=== PATIENT | female | born 1950 | race Caucasian/White ===

== ENCOUNTER 2020-06-02 14:34 | Outpatient (CLI) | payer MEDICARE ==
[2013-08-02 02:56] VITALS: BMI 29.3
[~2020-06-02 14:34] MED LIST: BAYER CHEWABLE81 MG PO; CELEXA10 MG PO; ECOTRIN325 MG PO; HYDROCODON-ACE1 EAC7 PO; K-DUR20 MEQ PO; LASIX20 MG PO; LISINOPRIL10 MG PO; PLAVIX75 MG PO
== END 2020-06-02 23:59 | disposition home or self-care (01) ==
LOC: D.MAMMO 14:34
PROVIDERS: ATTEND Family Medicine
DX: Z12.31 Encounter for screening mammogram for malignant neoplasm of breast (principal)

== ENCOUNTER 2020-07-25 19:37 | Inpatient (IN) | payer MEDICARE ==
[~2020-07-25] VITALS: Ht 157.5 cm; Wt 74.1 kg
[2020-07-25 20:13] LABS: BASOPHILS 0.8 % (0-2); EOSINOPHILS 2.6 % (0-7); HEMATOCRIT 33.7 % (36.0-48.0); HEMOGLOBIN 10.9 g/dL (12-16); LYMPHOCYTES 10.4 % (15-50); MCH 26.6 pg (26.0-34.0); MCHC 32.3 g/dL (31.0-37.0); MCV 82.3 fL (80.0-100.0); MEAN PLATELET VOLUME 7.8 fL (7.4-10.4); MONOCYTES 9.1 % (2-11); NEUTROPHILS 77.1 % (40-80); RBC 4.09 10x6/uL (4.00-5.40); RDW 14.8 % (11.5-14.5); WBC 8.7 10x3/uL (4.8-10.8)
[2020-07-25 20:18] LABS: PLATELET COUNT 339 10x3/uL (130-400)
[2020-07-25 20:21] LABS: APTT 25.6 SECONDS (22.8-39.4); INR 1.06 (0.85-1.17); PROTIME 12.7 SECONDS (11.6-15.0)
[2020-07-25 20:31] LABS: CALC OSMOLALITY 292 mosm/kg (275-300); CALCIUM 7.7 mg/dL (8.5-10.1); CARBON DIOXIDE 32.9 mmol/L (21.0-32.0); CHLORIDE - SERUM 105 mmol/L (98-107); CREATININE - SERUM 0.9 mg/dL (0.6-1.3); GLUCOSE 109 mg/dL (74-106); POTASSIUM - SERUM 3.4 mmol/L (3.5-5.1); SODIUM 145 mmol/L (136-145); UREA NITROGEN 20 mg/dL (7-18); eGFR NON AFRICAN AMERICAN 65 mL/min (90-120)
[2020-07-25 20:50] LABS: ALBUMIN 3.5 g/dL (3.4-5.0); ALKALINE PHOSPHATASE 117 U/L (30-120); ALT (SGPT) 27 U/L (10-68); BILIRUBIN - TOTAL 0.31 mg/dL (0.2-1.3); CKMB 1.8 U/L (0.0-3.6); CREATINE KINASE 106 UL (21-215); PRO BNP 257 pg/mL (0-125); PROTEIN - SERUM 7.1 g/dL (6.4-8.2)
[2020-07-25 20:51] LABS: TROPONIN-I < 0.017 ng/mL (0.000-0.060)
[2020-07-25 23:27] VITALS: BP 169/61
[2020-07-26] MEDS ORDERED: SINGULAIR10 MG PO (00:56)
[2020-07-26] MEDS ORDERED: COZAAR50 MG PO (00:56)
[2020-07-26] MEDS ORDERED: NORVASC10 MG PO (00:57)
[2020-07-26] MEDS ORDERED: PROTONIX40 MG PO (00:58)
[2020-07-26] MEDS ORDERED: LIPITOR40 MG PO (01:41)
[2020-07-26 04:53] VITALS: BP 157/70; BMI 29.9
[2020-07-26 05:37] VITALS: BP 137/64
[2020-07-26 06:20] LABS: BASOPHILS 0.1 % (0-2); EOSINOPHILS 0.4 % (0-7); HEMATOCRIT 33.6 % (36.0-48.0); HEMOGLOBIN 11.1 g/dL (12-16); LYMPHOCYTES 5.1 % (15-50); MCH 26.9 pg (26.0-34.0); MCHC 32.9 g/dL (31.0-37.0); MCV 81.8 fL (80.0-100.0); MEAN PLATELET VOLUME 8.2 fL (7.4-10.4); MONOCYTES 1.8 % (2-11); NEUTROPHILS 92.6 % (40-80); PLATELET COUNT 320 10x3/uL (130-400); RBC 4.11 10x6/uL (4.00-5.40); RDW 14.6 % (11.5-14.5)
[2020-07-26 06:45] LABS: ALBUMIN 3.5 g/dL (3.4-5.0); ANION GAP 11.8 mmol/L (8-16); BILIRUBIN - TOTAL 0.3 mg/dL (0.2-1.3); CALCIUM 7.9 mg/dL (8.5-10.1); CARBON DIOXIDE 31.1 mmol/L (21.0-32.0); CREATININE - SERUM 0.9 mg/dL (0.6-1.3); POTASSIUM - SERUM 3.9 mmol/L (3.5-5.1); PROTEIN - SERUM 7.3 g/dL (6.4-8.2)
--- NOTE | 2020-07-26 07:00 | NUR ---
RECEIVED REPORT. ASSUMED CARE OF PATIENT. WHITE BOARD UPDATED, BEDSIDE SHIFT REPORT COMPLETE. NO DISTRESS. CALL LIGHT WITHIN REACH.
--- NOTE | 2020-07-26 08:00 | NUR ---
SCDs NOT WANTED AT THIS TIME. PATIENT UP FREQUENTLY TO THE RESTROOM AND IN A HURRY. EDUCATION PROVIDED WHY SCDs ARE USED IN THE PREVENTION OF BLOOD CLOTS. PATIENT VERBALIZED UNDERSTANDING OF EDUCATION PROVIDED. PATIENT CONTINUES TO NOT WEAR THEM AT THIS TIME. NO DISTRESS.
[2020-07-26 09:17] VITALS: BP 157/70
[2020-07-26 11:57] VITALS: BP 156/57
--- NOTE | 2020-07-26 13:29 | NUR ---
MEDICATED FOR PAIN AND ASSISTED PATIENT BACK TO BED. NO DISTRESS.
[2020-07-26 13:49] VITALS: BMI 29.8
[2020-07-26 14:35] VITALS: Ht 157.5 cm; Wt 74.1 kg
--- NOTE | 2020-07-26 14:57 | NUR ---
PATIENT DISLODGED IV RETURNING FROM RESTROOM. 20 GAUGE IV REMOVED FROM LEFT AC, CATHETER TIP INTACT, NO BLEEDING FROM SITE. 2X2 GAUZE APPLIED AND SECURED WITH TAPE. NO DISTRESS.
--- NOTE | 2020-07-26 16:36 | NUR ---
PATIENTS DAUGHTER CALLED FOR AN UPDATE. DAUGHTER THANKED THIS REVIVAL CLERK FOR UPDATING HER ON HER MOMS CONDITION.
--- NOTE | 2020-07-26 17:00 | NUR ---
20 GAUGE IV PLACED TO LEFT WRIST/FA AREA X 1 STICK. GOOD BLOOD RETURN, EASY FLUSH. TAPED, DATED AND SECURED. PATIENT TOLERATED IV PLACMENT WELL. IV FLUIDS NOW INFUSING ORDERED. NO DISTRESS.
[2020-07-26 19:25] VITALS: BP 172/72
--- NOTE | 2020-07-26 19:45 | NUR ---
RECEIVED BEDSIDE REPORT. PT LAYING IN BED A&O X4. PIV TO LEFT WRIST, PATENT AND INFUSING, NO REDNESS OR SWELLING. 02 SAT 97% ON 2L VIA NC. TELEMETRY IN PLACE, 93 SR. EDCUATED PT ON CL AND NEEDS, VERBALIZED UNDERSTANDING. BED LOW, CL IN REACH.
[2020-07-26 20:00] VITALS: BP 172/72
[2020-07-27 04:00] VITALS: BP 162/80
--- NOTE | 2020-07-27 06:50 | NUR ---
RECIEVED BEDSIDE REPORT. RESP EVEN AND UNLABORED ON 2L NASAL CANNULA. IV TO LEFT WRIST NS RUNNING AT 50.
[2020-07-27 07:44] VITALS: BP 170/71
--- NOTE | 2020-07-27 09:00 | NUR ---
PATIENT ASLEEP AND EASILY AROUSED. NO CURRENT PAIN OR DISTRESS. SHORTNESS OF BREATH NOTED WHEN ACTIVITY STARTED. O2 AT L NASAL CANNULA SAT 98. LUNG SOUNDS WITH BILATERAL LOWER DIMINISHED LOBES. HEART SOUNDS REGULAR RATE AND RYTHYM. PATIENT IS AMBULATORY AROUND ROOM AND TWO BATHROOM. IV TO LEFT WRIST PATENT AND RUNNING FLUID AT 50P/HR.
[2020-07-27 12:02] VITALS: BP 162/58
[2020-07-27 15:37] VITALS: BP 164/71
[2020-07-27 20:14] VITALS: BP 124/79
[2020-07-27 23:38] VITALS: BP 190/79
[2020-07-28 06:07] VITALS: BP 166/82
[2020-07-28 06:45] LABS: BASOPHILS 0.2 % (0-2); EOSINOPHILS 0 % (0-7); HEMATOCRIT 34.5 % (36.0-48.0); HEMOGLOBIN 11.3 g/dL (12-16); LYMPHOCYTES 10.2 % (15-50); MCH 26.6 pg (26.0-34.0); MCHC 32.7 g/dL (31.0-37.0); MCV 81.3 fL (80.0-100.0); MEAN PLATELET VOLUME 8.1 fL (7.4-10.4); MONOCYTES 4.8 % (2-11); NEUTROPHILS 84.8 % (40-80); PLATELET COUNT 362 10x3/uL (130-400); RBC 4.24 10x6/uL (4.00-5.40); RDW 14.9 % (11.5-14.5)
[2020-07-28 06:59] LABS: CALC OSMOLALITY 286 mosm/kg (275-300); CALCIUM 8.3 mg/dL (8.5-10.1); CARBON DIOXIDE 30.4 mmol/L (21.0-32.0); CHLORIDE - SERUM 101 mmol/L (98-107); CREATININE - SERUM 0.7 mg/dL (0.6-1.3); POTASSIUM - SERUM 3.2 mmol/L (3.5-5.1); SODIUM 141 mmol/L (136-145); UREA NITROGEN 25 mg/dL (7-18); eGFR NON AFRICAN AMERICAN 87 mL/min (90-120)
[2020-07-28 07:26] LABS: GLUCOSE 135 mg/dL (74-106)
--- NOTE | 2020-07-28 08:00 | NUR ---
PT RECEIVED ASLEEP IN BED, AROUSED TO VOICE. OXYGEN AT 2 LITERS. PAIN IN LEGS, BEEN UP TO BATHROOM.
[2020-07-28 08:05] VITALS: BP 161/75
[2020-07-28 12:27] VITALS: BP 167/74
--- NOTE | 2020-07-28 20:00 | NUR ---
REPORT RECEIVED. PT A&O, UP ON BEDSIDE. NO S/S OF DISTRESS OBSERVED. RR EVEN & UNLABORED ON 2L. SR 91 ON TELE. [place] ADMIN'ED FOR PAIN. IV TO L WRIST PATENT, SL, SWAB CAPS IN USE. BED LOCKED AND LOWERED, CL IN REACH. ASSESSMENT COMPLETE. WILL CONT POC.
[2020-07-28 23:07] VITALS: BP 184/80
[2020-07-29 00:52] VITALS: BP 177/97
[2020-07-29 04:30] VITALS: BP 162/74
[2020-07-29 06:35] LABS: BASOPHILS 0.1 % (0-2); EOSINOPHILS 0 % (0-7); HEMOGLOBIN 11.8 g/dL (12-16); MCH 26.8 pg (26.0-34.0); MCHC 32.8 g/dL (31.0-37.0); MCV 81.7 fL (80.0-100.0); MEAN PLATELET VOLUME 8.1 fL (7.4-10.4); NEUTROPHILS 86.9 % (40-80); PLATELET COUNT 374 10x3/uL (130-400); RBC 4.41 10x6/uL (4.00-5.40); RDW 14.4 % (11.5-14.5)
[2020-07-29 08:00] VITALS: BP 147/51
--- NOTE | 2020-07-29 09:39 | NUR ---
Nutrition Reassessment/Follow-up: Eating well. Ate 100% of breakfast this AM. Diet: Regular No new wt; last wt: 163.3# (07/26) Labs noted: Glu 191, Ca 8.0; 07/28 - Glu 135; 07/27 - Glu 213 Meds noted: Protonix, Lasix, Metamucil, Floranex, Solumedrol, NS @ 50, electrolyte protocol Nutrition Diagnosis: -Altered nutrition-related lab values R/T respiratory illness on steroids AEB consistently elev Glu. Nutrition Goals: -PO intake >=75% avg of meals/snacks. -Stable dry wt. -Glu at or near normal. Nutrition Intervention: -Nutrition needs unchanged since initial assessment; no new wt available. -Change to carb consistent diet 2/2 consistently elev Glu. -Encourage PO intake and honor food preferences within diet restrictions. -Monitor wt. -RD will follow up within 7 days if pt still admitted.
[2020-07-29 12:00] VITALS: BP 161/71
[2020-07-29 16:00] VITALS: BP 129/58
--- NOTE | 2020-07-29 19:00 | NUR ---
REPORT GIVEN BY ELEAZAR CAMPOS
--- NOTE | 2020-07-29 20:00 | NUR ---
PT SITTING ON THE SIDE OF THE BED. SHE IS ON 2L O2 VIA NC. PT IS ALSO ON HOME O2. SHE IS UP AD ANITA TO THE BR AND IN HER ROOM. SHE KNOWS TO CALL IF SHE NEEDS ASSISTANCE. PT HAS A LEFT WRIST 22G IV THAT IS SL. SHE IS DELIGHTED THAT SHE IS HAVING FORMED STOOLS NOW. SHE STATES SHE HAS HAD "SEVERAL". SHE HAS NO C/O OF PAIN. PT GETS ANXIOUS AT TIMES BUT IS FINE TONIGHT. PT SOUNDS A LITTLE WHEEZY. ASSESSMENT COMLETE.
--- NOTE | 2020-07-29 21:00 | NUR ---
CHECKED IN ON PT. SHE HAS NO C/O AT THIS TIME.
[2020-07-29 21:31] VITALS: BP 149/50
--- NOTE | 2020-07-29 22:30 | NUR ---
IN PT ROOM TO START IV MEDICATION.
--- NOTE | 2020-07-29 22:45 | NUR ---
PT CALLED SAYING HER IV WAS LEAKING. IV RESTARTED BY ELEAZAR ESCALANTE, IN HER RIGHT FOREARM. HER ANTIBIOTIC IS RESUMED.
--- NOTE | 2020-07-29 23:15 | NUR ---
IV IS NOW SL.
[2020-07-30 00:15] VITALS: BP 169/70
[2020-07-30 05:01] LABS: BASOPHILS 0.2 % (0-2); EOSINOPHILS 0 % (0-7); HEMATOCRIT 37.9 % (36.0-48.0); HEMOGLOBIN 12.3 g/dL (12-16); LYMPHOCYTES 10.7 % (15-50); MCH 26.3 pg (26.0-34.0); MCHC 32.4 g/dL (31.0-37.0); MCV 81.2 fL (80.0-100.0); MEAN PLATELET VOLUME 7.7 fL (7.4-10.4); MONOCYTES 2.3 % (2-11); NEUTROPHILS 86.8 % (40-80); PLATELET COUNT 405 10x3/uL (130-400); RBC 4.66 10x6/uL (4.00-5.40); RDW 14.7 % (11.5-14.5); WBC 10.7 10x3/uL (4.8-10.8)
[2020-07-30 05:05] VITALS: BP 172/85
[2020-07-30 05:15] LABS: ANION GAP 13.9 mmol/L (8-16); CALCIUM 8.2 mg/dL (8.5-10.1); CARBON DIOXIDE 31.1 mmol/L (21.0-32.0); CREATININE - SERUM 0.9 mg/dL (0.6-1.3)
--- NOTE | 2020-07-30 05:31 | NUR ---
PT JUST HAD A BATH AND WASHED HER HAIR. SHE STATES SHE FEELS MUCH BETTER.
--- NOTE | 2020-07-30 05:41 | NUR ---
CALCIUM 8.2 NO ORDERS FOUND FOR REPLACEMENT
--- NOTE | 2020-07-30 06:01 | NUR ---
PT DID IS 5 TIMES AND AVERAGED 750 I ASKED HER THAT NEXT HOUR SHE DO 6 TIMES AND BUILD UP BY 1 EVERY HOUR UNTIL SHE GETS TO 10.
[2020-07-30 07:32] VITALS: BP 186/81
--- NOTE | 2020-07-30 09:33 | NUR ---
PATIENT AAOX4 RESP EVEN AND NON LABORED,NO S/S OF DISTRESS, MEDICATIONS ADMINISTERED WITH NO COMPLICATIONS, NO FURTHER NEEDS AT THIS TIME,CLIR, BLP
[2020-07-30 11:10] VITALS: BP 187/84
--- NOTE | 2020-07-30 11:20 | NUR ---
I have reviewed this patient and I concur with the Shift Assessment completed by the Licensed Practical Nurse today this shift.
[2020-07-30] MEDS ORDERED: OMNICEF300 MG PO (13:45)
[2020-07-30] MEDS ORDERED: ZITHROMAX250 MG PO (13:45)
[2020-07-30] MEDS ORDERED: IPRAT-ALBUT 0.5-3 ML INH (13:46)
[2020-07-30] MEDS ORDERED: [UNRECOGNIZED DRUG - OTHER] PO (13:47)
[2020-07-30] MEDS ORDERED: FLORANEX / LACT1 TAB PO (13:47)
[2020-07-30] MEDS ORDERED: COZAAR50 MG PO (13:47)
[2020-07-30] MEDS ORDERED: STERAPRED DS 1010 MG PO (13:50)
--- NOTE | 2020-07-30 14:51 | NUR ---
PATIENT DISCHARGED HOME VIA WHEELCHAAIR, IV REMOVED WITH NO COMPLICATIONS, TELEMETRY REMOVED AND RETURNED TO MONITORS IN ICU
--- NOTE | 2020-07-30 16:22 | MORECARE ---
CASE MANAGEMENT DISCHARGE SUMMARY PATIENT: CHENTE CARVALHO UNIT: [id number] ADM DATE: 07/25/20 AGE: 69 : 48 SEX: F ROOM/BED: D.2108 AUTHOR: KENJI,DOC PHYSICIAN: REFERRING PHYSICIAN: SONJA LOYA MD DATE OF SERVICE: 07/30/20 Case Management Discharge Planning Summary DCP REVIEW SUMMARY ANTICIPATED D/C DATE: 07/30/2020 EXPECTED LOS : 5 CASE STATUS: DCP Initiated INITIAL REVIEW: 07/30/2020 INITIAL REVIEWER: Bernadette Redmond FINAL DISCHARGE DISPOSITION: : FINAL REVIEWER: FINAL REVIEW DATE: DCP [facility] Questions [facility] Answers QUESTION: ANSWER : PATIENT: CHENTE CARVALHO ENCOUNTER: [id number] MEDICAL RECORD#: [id number] ADMISSION DATE: 07/25/2020 DISCHARGE DATE: 07/30/2020 ATTENDING MD: SONJA PEREZ : AGE: 69 MARITAL STATUS: D DC PLAN ID: [id number] FACILITY: [facility] PRINTED ON: 07/30/20 16:22 CT All edits/amendments must be made on the electronic document DICTATION DATE: 07/30/201621 BACK HOE MACHINE OPERATOR: LEILA 07/30/201621 RPT#: [id number] DC DATE:07/30/20 STATUS: DIS IN [facility] [address] [place] [address] END OF REPORT
--- NOTE | 2020-07-30 16:35 | MORECARE ---
CASE MANAGEMENT DISCHARGE SUMMARY PATIENT: CHENTE CARVALHO UNIT: [id number] ADM DATE: 07/25/20 AGE: 69 : 48 SEX: F ROOM/BED: D.2108 AUTHOR: KENJI,DOC PHYSICIAN: REFERRING PHYSICIAN: SONJA LOYA MD DATE OF SERVICE: 07/30/20 Case Management Discharge Planning Summary COMMENTS ENTERED DATE: 07/30/20 16:20 CT COMMENT TYPE: Discharge Planning REVIEWER: Bernadette Redmond CM received discharge orders, but was already gone when I went to the room. After several calls with wrong numbers, I was able to reach her daughter, Juliana. Juliana gave me patient's correct phone number [phone]. I left a message on her answering machine to return my call. I called Juliana again at [phone]. Juliana states that the patient does want home health and gives me permission to call [facility]. I spoke with Naila at [facility] and clinical faxed. Juliana states to use [facility] for nebulizer med. I called [facility] and order and clinical faxed. I informed all parties that Dr. Maza is her physician and her correct address is [address] [place] [address] in [facility]. Patient's nurse, Yusuf states that patient's oxygen saturation with ambulation never dropped below 95% on room air so she did not qualify for home oxygen. [facility] REVIEW SUMMARY ANTICIPATED D/C DATE: 07/30/2020 EXPECTED LOS : 5 CASE STATUS: DCP Initiated INITIAL REVIEW: 07/30/2020 INITIAL REVIEWER: Bernadette Redmond FINAL DISCHARGE DISPOSITION: : FINAL REVIEWER: FINAL REVIEW DATE: [facility] Focus Questions & Answers QUESTION: ANSWER : PATIENT: CHENTE CARVALHO ENCOUNTER: [id number] MEDICAL RECORD#: [id number] ADMISSION DATE: 07/25/2020 DISCHARGE DATE: 07/30/2020 ATTENDING MD: SONJA PEREZ : AGE: 69 MARITAL STATUS: D DC PLAN ID: [id number] FACILITY: [facility] PRINTED ON: 07/30/20 16:35 CT All edits/amendments must be made on the electronic document DICTATION DATE: 07/30/20 1635 INDUSTRIAL GAS SERVICE HELPER: LEILA 07/30/20 1635 RPT#: [id number] DC DATE:07/30/20 STATUS: DIS IN [facility] [address] [place] [address] END OF REPORT
--- NOTE | 2020-07-31 06:59 | MORECARE ---
CASE MANAGEMENT DISCHARGE SUMMARY PATIENT: CHENTE CARVALHO UNIT: [id number] ADM DATE: 07/25/20 AGE: 69 : 48 SEX: F ROOM/BED: D.2108 AUTHOR: KENJI,DOC PHYSICIAN: REFERRING PHYSICIAN: SONJA LOYA MD DATE OF SERVICE: 07/31/20 Case Management Discharge Planning Summary COMMENTS ENTERED DATE: 07/30/20 16:20 CT COMMENT TYPE: Discharge Planning REVIEWER: Bernadette Redmond CM received discharge orders, but was already gone when I went to the room. After several calls with wrong numbers, I was able to reach her daughter, Juliana. Juliana gave me patient's correct phone number [phone]. I left a message on her answering machine to return my call. I called Juliana again at [phone]. Juliana states that the patient does want home health and gives me permission to call [facility]. I spoke with Naila at [facility] and clinical faxed. Juliana states to use [facility] for nebulizer med. I called [facility] and order and clinical faxed. I informed all parties that Dr. Maza is her physician and her correct address is [address] [place] [address] in [facility]. Patient's nurse, Yusuf states that patient's oxygen saturation with ambulation never dropped below 95% on room air so she did not qualify for home oxygen. DCP REVIEW SUMMARY ANTICIPATED D/C DATE: 07/30/2020 EXPECTED LOS : 5 CASE STATUS: DCP Complete INITIAL REVIEW: 07/30/2020 INITIAL REVIEWER: Bernadette Redmond FINAL DISCHARGE DISPOSITION: 06 : Discharged/Trans to Home Under Care of Organized Home Health Service in Anticipation of Skilled Care FINAL REVIEWER: Bernadette Redmond FINAL REVIEW DATE: 07/31/2020 DCP [facility] Questions [facility] Answers QUESTION: ANSWER : PATIENT: CHENTE CARVALHO ENCOUNTER: [id number] MEDICAL RECORD#: [id number] ADMISSION DATE: 07/25/2020 DISCHARGE DATE: 07/30/2020 ATTENDING MD: SONJA PEREZ : AGE: 69 MARITAL STATUS: D DC PLAN ID: [id number] FACILITY: [facility] PRINTED ON: 07/31/20 6:59 CT All edits/amendments must be made on the electronic document DICTATION DATE: 07/31/20657 SYSTEMS ARCHITECTURE ANALYST: LEILA 07/31/20657 RPT#: [id number] DC DATE:07/30/20 STATUS: DIS IN [facility] [address] [place] [address] END OF REPORT
--- NOTE | 2020-07-31 09:30 | MORECARE ---
CASE MANAGEMENT DISCHARGE SUMMARY PATIENT: CHENTE CARVALHO UNIT: [id number] ADM DATE: 07/25/20 AGE: 69 : 48 SEX: F ROOM/BED: D.2108 AUTHOR: KENJI,DOC PHYSICIAN: REFERRING PHYSICIAN: SONJA LOYA MD DATE OF SERVICE: 07/31/20 Case Management Discharge Planning Summary COMMENTS ENTERED DATE: 07/30/20 16:20 CT COMMENT TYPE: Discharge Planning REVIEWER: Bernadette Redmond CM received discharge orders, but was already gone when I went to the room. After several calls with wrong numbers, I was able to reach her daughter, Juliana. Juliana gave me patient's correct phone number [phone]. I left a message on her answering machine to return my call. I called Juliana again at [phone]. Juliana states that the patient does want home health and gives me permission to call [facility]. I spoke with Naila at [facility] and clinical faxed. Juliana states to use [facility] for nebulizer med. I called [facility] and order and clinical faxed. I informed all parties that Dr. Maza is her physician and her correct address is [address] [place] [address] in [facility]. Patient's nurse, Yusuf states that patient's oxygen saturation with ambulation never dropped below 95% on room air so she did not qualify for home oxygen. DCP REVIEW SUMMARY ANTICIPATED D/C DATE: 07/30/2020 EXPECTED LOS : 5 CASE STATUS: DCP Complete INITIAL REVIEW: 07/30/2020 INITIAL REVIEWER: Bernadette Redmond FINAL DISCHARGE DISPOSITION: 06 : Discharged/Trans to Home Under Care of Organized Home Health Service in Anticipation of Skilled Care FINAL REVIEWER: Bernadette Redmond FINAL REVIEW DATE: 07/31/2020 DCP [facility] Questions [facility] Answers QUESTION: ANSWER : PATIENT: CHENTE CARVALHO ENCOUNTER: [id number] MEDICAL RECORD#: [id number] ADMISSION DATE: 07/25/2020 DISCHARGE DATE: 07/30/2020 ATTENDING MD: SONJA PEREZ : AGE: 69 MARITAL STATUS: D DC PLAN ID: [id number] FACILITY: [facility] PRINTED ON: 07/31/20 9:30 CT All edits/amendments must be made on the electronic document DICTATION DATE: 07/31/20929 GLOVE MAKER: LEILA 07/31/20929 RPT#: [id number] DC DATE:07/30/20 STATUS: DIS IN [facility] [address] [facility] [place] [address] END OF REPORT
== END 2020-07-30 15:01 | disposition home health service (06) | DRG 202 ==
LOC: D.ER 19:37 → D.M2 23:34 → D.EDHOLD 23:34 → D.M2 23:36
PROVIDERS: Family Medicine; ADMIT Family Medicine; ATTEND Family Medicine
DX: J20.9 Acute bronchitis, unspecified (principal); J96.90 Respiratory failure, unspecified, unspecified whether with hypoxia or hypercapnia; J98.11 Atelectasis; J45.909 Unspecified asthma, uncomplicated; I10 Essential (primary) hypertension; Z95.5 Presence of coronary angioplasty implant and graft; K21.9 Gastro-esophageal reflux disease without esophagitis; M19.90 Unspecified osteoarthritis, unspecified site; E87.6 Hypokalemia; F41.9 Anxiety disorder, unspecified; Z86.73 Personal history of transient ischemic attack (TIA), and cerebral infarction without residual deficits